=== PATIENT | female | born 1975 | race Caucasian/White ===

== ENCOUNTER 2025-02-02 12:31 | Outpatient (CLI) | payer BC, SELFPAY ==
--- NOTE | ~2025-02-02 | CT_ITS ---
Non-contrast CT scan of the Abdomen and Pelvis Clinical indication: Incisional hernia Technique: 2.5 mm axial scans were obtained through the abdomen and pelvis without intravenous or or al contrast. Dose reduction technique was used on this scan by utilizing automated exposure control a nd iterative reconstruction technique. The dose-length product (DLP) was 1525.61 mGy-cm. Findings: Images through the lung bases reveal no abnormalities. There is no evidence of renal or ureteral calculi. The kidneys and the ureters are nondilated. Right renal cysts are present. The liver, spleen, pancreas, and adrenals appear normal. Cholecystectomy clips are present. There is no aortic aneurysm. There is no evidence of bowel obstruction. Small fat-containing umbilical hernia noted. Additional sm all fat-containing ventral hernia present just superior to the umbilicus. Images through the pelvis were performed. There is no evidence of ascites or lymphadenopathy. Urinary bladder unremarkable. No pelvic mass seen. Impression: Small fat-containing umbilical hernia. Additional small ventral fat-containing hernia just superior to the umbilicus. Reviewed, dictated and finalized at [facility]. Impression: Small fat-containing umbilical hernia. Additional small ventral fat-containing hernia just superior to the umbilicus.
--- OUTSIDE RECORDS SUMMARY | 2025-02-02 13:28 | XMS_ITS | Clinical Summary ---
Author Organization [facility] Address [address] [place] [address] Care Team Providers Care Supervisor Stave Finishing Name Role Phone Christine Johnson MD Primary Care Provider [phone] Source Comments [facility],non-owned Affiliates and Associated Physician Practices is amultiple site organization consisting of ambulatory clinics and hospital sitesin [place], [place], [place] and [place]. This disclosure is being madepursuant to the Care Everywhere program and may not contain all information available regarding this patient. Last updated 18.[facility] Allergies Active Allergy Reactions Criticality Noted Date Comments Codeine Fever 11/25/2018 Fever Blisters Medications * Be aware that medications may not be up to date on this document. Alwaysverify current medications with the patient. Acetaminophen (TYLENOL) 325 MG CAPS Take by mouth as needed Active Active Problems Problem Noted Date Diagnosed Date Abdominal pain 11/25/2018 Social History Tobacco Use Types Packs/Day Years Used Date Smoking Tobacco: Every Day Cigarettes Smokeless Tobacco: Never Alcohol Use Standard Drinks/Week Comments No 0 (1 standard drink = 0.6 oz pur e alcohol) Comments Unknown Sex and Gender Information Value Date Recorded Sex Assigned at Not on file Legal Sex Female 5:33 AM APPLICATION SUPPORT ANALYST Gender Identity Not on file Sexual Orientation Not on file Occupation Industry Job Start Date Job End Date homemaker Not on file Not on file Not on file Last Filed Vital Signs Vital Sign Reading Time Taken Comments Blood Pressure 112/78 11/25/2018 3:36 PM APPLICATION SUPPORT ANALYST Pulse 89 11/25/2018 3:36 PM APPLICATION SUPPORT ANALYST Temperature - - Respiratory Rate 18 11/25/2018 3:36 PM APPLICATION SUPPORT ANALYST Oxygen Saturation 98% 11/25/2018 3:36 PM APPLICATION SUPPORT ANALYST Inhaled Oxygen Concentration - - Weight 129.3 kg (285 lb) 11/25/2018 3:36 PM APPLICATION SUPPORT ANALYST Height 170.2 cm (5' 7 ) 11/25/2018 3:36 PM APPLICATION SUPPORT ANALYST Body Mass Index 44.64 11/25/2018 3:36 PM APPLICATION SUPPORT ANALYST Plan of Treatment Health Maintenance Due Date Last Done Comments COLOGUARD (AGES 45-75) - COL ON CA SCREENING 1975 COLON MONITORING 1975 COLONOSCOPY - COLON CA SCREENING 1975 CT COLONOGRAPHY - COLON CA SCREENING 1975 Colorectal Cancer Screening 1975 FIT - COLON CA SCREENING 1975 FLEX SIG - COLON CA SCREENING 1975 LIPID TESTING 1975 HIV SCREENING 1990 HEPATITIS C SCREENING 02/07/1993 DTAP/TDAP/TD VACCINES (1 - Tdap) 1994 HEPATITIS B VACCINE (1 of 3 - 19+ 3-dose series) 1994 MAMMOGRAM 01/15/2020 01/14/2018 SCREENING FOR DIABETES 11/27/2021 11/27/2018 COVID-19 VACCINE (1 - 2023-2 5 season) 2024 DEPRESSION SCREENING 10/06/2024 ZOSTER VACCINE (1 of 2) 2025 INFLUENZA VACCINE (Season Ended) 2025 HIB VACCINE Aged Out No longer eligi ble based on patient's age to complete this topic HPV VACCINE Aged Out No longer eligi ble based on patient's age to complete this topic MENINGOCOCCAL (Group B) VACC INE SHARED DECISION-MAKING Aged Out No longer eligibl e based on patient's age to complete this topic MENINGOCOCCAL GROUPS A/C/Y/W VACCINE Aged Out No longer eligible b ased on patient's age to complete this topic Procedures Procedure Name Priority Date/Time Associated Diagnosis Comments COMPREHENSIVE METABOLIC PANEL Routine 11/27/2018 12:00 PM APPLICATION SUPPORT ANALYST Abdominal pain, unspecified abdominal location from Last 3 Months or Most Recently Relevant to Health Maintenance Results * COMPREHENSIVE METABOLIC PANEL (11/27/2018 12:00 PM APPLICATION SUPPORT ANALYST) Glucose 104 74 - 106 mg/dL [facility] INSURANCE BILL BUN 16 7 - 21 mg/dL [facility] INSURANCE BILL Creatinine 1.00 0.50 - 1.30 mg/dL [facility] INSURANCE BILL eGFR by MDRD >60 >60 mL/min/1.7 3m2 [facility] INSURANCE BILL eGFR by MDRD >60 >60 mL/min/1.7 3m2 [facility] INSURANCE BILL Sodium 140 136 - 145 mmol/L [facility] INSURANCE BILL Potassium 4.7 3.5 - 5.1 mmol/L [facility] INSURANCE BILL Chloride 107 98 - 107 mmol/L [facility] INSURANCE BILL CO2 29 22 - 31 mmol/L [facility] INSURANCE BILL Calcium 9.1 8.5 - 10.1 mg/dL [facility] INSURANCE BILL Protein Total 7.2 6.4 - 8.2 gm/dL [facility] INSURANCE BILL Albumin 3.5 3.4 - 5.0 gm/dL [facility] INSURANCE BILL Bilirubin Total 0.3 0.2 - 1.0 mg/dL [facility] INSURANCE BILL Alkaline Phosphatase 84 38 - 126 U/L [facility] INSURANCE BILL AST 9 5 - 40 U/L [facility] INSURANCE BILL ALT 22 13 - 61 U/L [facility] INSURANCE BILL Comment:FASTING Blood BLOOD SPECIMEN / Unknown 11/27/2018 12:00 PM APPLICATION SUPPORT ANALYST 11/27/2018 Narrative Resulting Agency Comment [address] [phone] [place] Javier Russell MD LAB - CHEMISTRY ORDERABLES Fin al Result Performing Organization Address City/State/[facility] Co de Phone Number [facility] INSURANCE BILL [address] [place] [address] from Last 3 Months or Most Recently Relevant to Health Maintenance [place] [address] [place] [address] ANTHEM Care Teams Supervisor Stave Finishing Relationship Specialty [place] [address] [place] [phone] PCP - General Gastroenterology 11/25/18
--- OUTSIDE RECORDS SUMMARY | 2025-02-02 13:28 | XMS_ITS | CONTINUITY OF CARE DOCUMENT ---
Author Name annalee mantilla Address Unknown Organization [facility] Address [address] [place] [address] [address] [place] [address] Phone [phone] Care Team Providers Care Strategic Account Executive Name Role Phone annalee mantilla Unavailable Unavailable
--- OUTSIDE RECORDS SUMMARY | 2025-02-02 13:28 | XMS_ITS | Continuity of Care Document ---
Author Organization [facility] Address [address] [place] [address] Phone Care Team Providers Care Bag Tester Name Role Phone Dillon OD, Victor Manuel Unavailable Unavailable Advance Directives Directive Yes / No Effective Date File Name No Information Encounters Encounter Description Practice Location Reason(s) For Visit Diagnoses Date Provider Providers Copied on Encounter [facility], [address], [place], [place], [id number], [place] tel:[phone] [facility] [place]note 2] No Information 7-200 5 Dillon OD Victor Manuel. [address] , [address], [place], [address], [place]. tel:[phone] Family History Family Member Type Diagnosis Age At Onset No Information Payers Payer name Insurance type Covered constitution party ID Authorbriana danilo(s) [facility] CI [id number] Medicaid [facility] [id number] Social History Type Description Quantity Date Captured Comments Sex Female Smoking Status No Information Chief Complaint And Reason For Visit No Information Reason For Referral Reason For Referral No Information History Of Present Illness Encounter Date Complaint History Of Prese nt Illness No Information Functional Status Date Functional Assessmen t No Information Instructions Date Instruction Additional Infor mation No Information Assessments Type Assessment Date No Information Patient Care Teams Name Effective Dates (start - stop) Status Members No Information
--- OUTSIDE RECORDS SUMMARY | 2025-02-02 13:28 | XMS_ITS | Data Portability ---
Author Organization [facility] [employer], Main Office Address [address] [place] [address] Assessment Encounter Date Assessment Date Assessment LastModified by Organization Details LastModified Time 06/26/2023 06/26/2023 generalized abdominal pain times many years patient thinks is the mesh placed 15 years ago for a hernia. We will proceed with CT scan to further evaluate. [email or web address] Not available 06/26/2023 12:10:03 Plan of Treatment Reminders Order Date Submit Date Provider Last Modified By Organization Details Last Modified Time Details Appointments None record ed. Lab None record ed. Referral None record ed. Procedures None record ed. Surgeries None record ed. Imaging None record ed. Medication Orders None record ed. Patient TargetsNo targets recorded. Patient InstructionsNo instructions recorded. Reason for Referral None Reported. Results Created Date Observation Date Name Description Value Unit Range Abnormal Flag Note LastModifiedBy Organization Detail LastModifiedTime 07/03/20 23 07/03/2023 CT, abdom en + pelvi s, w/ contr ast [facility] [address] [id number] Patien t Name: JACINTA RIBERA MS Access ion #: [id number] Sex: F : 1974 7 Dictat ed By: Edilia Eduardo Attend ing Physic gudelia: CHRISTIAN GLOVER Orderi ng Physic gudelia: CHRISTIAN GLOVER Exam Date: 2022 12:29 PM Exam Name: CT ABDOME N PELVIS W Admitt ing Diagno sis(es ): Exam: CT abdome n and pelvis with contra st dated 023 12:29 PM CDT Histor y: 48 years old Female with abdomi nal pain Compar carlos Study: 2018 TECHNI QUE: A digita l technical producer image was obtain ed. During the uneven tful, intrav enous admini strati on of contra st materi al, multis lice data acquis ition was obtain ed throug h the abdome n and pelvis . The data set was subseq uently recons tructe d into axial images . Images were review ed on a work statio n using a combin ation of axial and multip lanar using a variet y of window levels and settin gs. RADIAT ION DOSE: DLP 2318 mGy.cm ; CTDI 11.1 mGy. FINDIN GS: Visual ized lower thorax : Limite d imagin g of the lung bases demons trates no suspic ious pleura l or parenc hymal diseas e. Liver: Diffus e hypoat tenuat ion of the liver sugges tive of fatty infilt ration . Gallbl adder: The gallbl adder is surgic ally absent . Biliar y system : There is no intrah epatic or extrah epatic bile duct dilata tion. Spleen : Normal in morpho logy and attenu ation. Pancre as: Normal in morpho logy and attenu ation. Adrena l glands : Normal in morpho logy and attenu ation. Page 1 [facility] [address] [address] Patien t Name: JACINTA RIBERA MS Access ion #: [id number] Sex: F : 1974 7 Dictat ed By: Edilia Eduardo Attend ing Physic gudelia: CLIFF CARSON Orderi ng Physic gudelia: CHRISTIAN GLOVER Exam Date: 2022 12:29 PM Exam Name: CT ABDOME N PELVIS W Admitt ing Diagno sis(es ): Kidney s: The kidney s enhanc e symmet ricall y and are withou t suspic ious abnorm ality. Bilate ral cortic al renal scarri ng. Bilate ral renal cysts. Urinar y tract: The ureter s, as visual ized, are normal in course and calibe r. The bladde r is within normal limits . Pelvis : Uterus is not visual ized. No adnexa l masses . Perito neum: No signif icant ascite s. No pneumo perito neum. GI tract: No bowel wall thicke jazmine or dilata tion. Enteri c contra st is visual ized. Lymph nodes: There are no abnorm ally enlarg ed intra- abdomi nal or pelvic lymph nodes. Vascul ar struct ures:T he aorta and iliac vessel s are normal in course and calibe r. Muscul oskele jose: No acute osseou s abnorm ality. Soft tissue s: Small fat-co ntaini ng umbili christelle hernia . IMPRES BRYANNA: 1. No acute abnorm ality in the abdome n or pelvis . 2. Status post cholec ystect anette. 3. Hepati c steato sis. All CT scans at this medica l facili ty are perfor med using dose modula tion techni ques as approp riate to a perfor med exam includ ing the follow ing: Automa scott exposu re contro l was utiliz ed; adjust ment of the MA and/or KV accord ing to patien t size; and use of iterat kory recons tructi on techni que. Electr onical ly Signed by: Edilia Eduardo at 2022 13:07: 19 PM Page [address] (Imaging) [address] [place], [address], 07/03/2023 15:37:21 07/03/20 23 07/03/2023 CT, abdom en + pelvi s, w/ contr ast No observ ation record ed. [address] [place], [address], 07/03/2023 15:37:03 Result Notes None recorded. Problems Name Problem SNOMED Code Status Onset Date Resolution Date Notes Provider Name and Address Organization Details Recorded Time Postoperative nausea 65472099 Active Not Available [facility] 3 17:28:29 Acute gangrenous cholecystitis 60726137 Active Not Available [facility] 3 17:28:29 Abdominal pain 48951964 Active 2022 Usama jasmine MD [address] [facility] [facility] [address], [place], [address] , [facility] 3 13:30:58 Problem Notes None recorded. Procedures Surgical History None recorded. Imaging Results Imaging Date Name Status LastModified by Organiz ation Details LastModified Time 07/03/2023 CT, abdomen + pelvis, w/ contrast completed [address] (Im[address]) [address] [place], [address], 07/03/2023 15:37:21 07/03/2023 CT, abdomen + pelvis, w/ contrast completed [address] [place], [address], 07/03/2023 15:37:03 Procedure Notes None recorded. Medical Equipment None Reported. Allergies Allergen ID Allergen Name Allergen Category Reaction Reaction Severity Criticality Documentation Date Start Date Code Code System Note Provider Name and Address Organization Details Recorded Time 75395 codeine medicatio n Not available Not available Not available 12/04/2022 2670 RxNorm Not Available [facility] 3 17:29:02 Medications Name Sig Start Date Stop Date Status Note LastModified by Organization Details LastModified Time Doc-Q-Lace 100 mg capsule active Not Available Not Available N ot Available sulfamethoxazol e 800 mg-trimethoprim 160 mg tablet active Not Available Not Availabl e Not Available oxycodone-aceta minophen 5 mg-325 mg tablet active Not Available Not Available Not Available bisacodyl 5 mg tablet,delayed release active Not Available Not Available Not Available Flexeril 10 mg tablet active Not Available Not Available Not Available cholecalciferol (vitamin D3) 1,250 mcg (50,000 unit) capsule TAKE 1 CAPSULE BY MOUTH EVERY WEEK WITH MEAL FOR 90 DAYS active Not Available Not Available No t Available Vitals Date Recorded Body temperature Heart rate Respiratory rate Oxygen saturation Oxygen saturation in Arterial blood by Pulse oximetry Body height Body mass index (BMI) Body weight Systolic blood pressure Diastolic blood pressure Provider Name and Address Organization Details Last Updated DateTime 3 97.6 [degF] 90 /min 18 /min 97 % 97 % 170.18 cm 50.7 kg/m2 177702. 93 g 130 mm[Hg] 82 mm[Hg] Alexandrea Suero [facility] [employer] [facility] 11:43:52 Social History Question Answer Notes LastModified by Organizat ion Details LastModified Time Tobacco Smoking Status Current Every Day Smoker Alexandrea Suero null, [facility] 06/26/2023 11:45:16 What Is Your Occupation? None [id number] Information not available 12/04/2022 Sex: Unknown Functional Status None recorded. Mental Status None recorded. Family History Relationship Description Onset Age of this Age Resolved Age Notes LastModified by Organization Details LastModified Time Father Hypertensive disorder [email or web address] Not available 06/07 11:44:52 Mother Hypertensive disorder Hypert ension , COPD [email or web address] Not available 06/26/2023 11:45:10 Medical History Condition Response ARTHRITIS Y Abdominal Pain Y OBESITY Y Gynecological HistoryNo gynecological history recorded. Obstetrics History GPAL:G 0 P 0 0 0 0 Past Encounters Encounter ID Performer Location Encounter Start Date Encounter Closed Date Diagnosis/Indication Diagnosis SNOMED-CT Code Diagnosis ICD10 Code Diagnosis Note [id number] Usama jasmine MD [facility] [address] [facility] [place] [address] 06/26/2023 11:02:39 06/26/2023 12:10:47 Abdominal pain 37739546 R10.9 Health Concerns Section Related Observation LastModified by Organization Detai ls LastModified Time None Recorded Concern Status LastModified by Organization Details LastModified Time None Recorded Advance Directives Directive None Recorded Payers Encounter Date Sequence Insurance Name Policy Number Policy Dunaway Covered Member ID Dunaway Member ID Guarantor Name 06/26/2023 1 [place] [id number] Obey Hairston [id number] Jacinta Hairston 06/26/2023 2 [place] [employer] Jacinta Hairston [id number] Jacinta Hairston Notes Date Note Type Note Provider Name and Address Organization Details Recorded Time 06/26/2023 text/html patient complain s of several years of abdominal pain in the mid to lower abdomen. thinks is from the mesh that was put in from hernia repair in 2007 15 years ago. had gallbladder surgery a in the past as well. patient's complaints are somewhat out of proportion with her history. Denies nausea vomiting fevers chills changes in bowel habits or any other constitutional symptoms Usama Moore MD [address] [facility] [facility] [address], [place], [address], [place] [facility] [place] [facility] [facility] 06/26/2023 13:31:03 OBGyn Episode No OBEpisode recorded.
== END 2025-02-02 12:32 | disposition home or self-care (01) ==
PROVIDERS: PCP Physician Assistant; Visit Provider Surgery
DX: K43.2 Incisional hernia without obstruction or gangrene (principal); K42.9 Umbilical hernia without obstruction or gangrene
CPT/HCPCS: 74176